=== PATIENT | male | born 1985 | race Caucasian/White ===

== ENCOUNTER 2018-04-12 20:10 | Emergency (ER) | payer OTHER, SELFPAY ==
[2018-04-12 20:29] VITALS: BP 144/82; PULSE 89; RESP 16; TEMP 37.4; O2SAT 98; BMI 34.4
--- NOTE | 2018-04-12 20:48 | DI.RAD.S_ITS ---
PROCEDURE: XR CHEST 2V INDICATIONS: shortness of breath, cough, chest pain TECHNIQUE: 2 views of the chest were acquired. COMPARISON: None. FINDINGS: Surgical changes and devices: None. Lungs and pleura: No pleural effusions or pneumothorax. Lungs are clear. Mediastinum: Mediastinal contours are normal. Heart size is normal. Bones and chest wall: No suspicious bony abnormalities. Soft tissues appear unremarkable. IMPRESSION: No acute cardiopulmonary disease process. Dictated by: Enma Amaya MD, PhD on 04/12/2018 at 21:19 Approved by: Enma Amaya MD, PhD on 04/12/2018 at 21:19
[2018-04-12] MEDS: ASPIRIN 81 MG TAB 324 MG PO (20:52)
[2018-04-12] MEDS: SODIUM CHLORIDE 0.9% 1,000 ML 150 ML IV (20:53)
[2018-04-12 21:04] LABS: Alanine Aminotransferase 40 IU/L (21-72); Albumin 3.9 g/dL (3.5-5.0); Albumin Globulin Ratio 1.3 (1.0-2.8); Alkaline Phosphatase 91 U/L (38-126); Aspartate Aminotransferase 28 IU/L (17-59); Bilirubin Total 0.9 mg/dL (0.2-1.3); Blood Urea Nitrogen 12 mg/dL (9-20); Calcium 8.7 mg/dL (8.4-10.2); Carbon Dioxide 26 mmol/L (22-32); Chloride 102 mmol/L (98-107); Creatine Kinase 76 U/L (55-170); Estimated Glomerular Filt Rate > 60.0 mL/min (>60); Globulin 2.9 g/dL (1.7-4.1); Glucose 101 mg/dL (70-100); HEMOLYSIS 37 (0-50); Lipase 42 U/L (23-300); Potassium 3.8 mmol/L (3.4-5.1); Sodium 138 mmol/L (137-145); Total Protein 6.8 g/dL (6.3-8.2)
[2018-04-12 21:17] LABS: Troponin I < 0.012 ng/mL (0.01-0.034)
[2018-04-12 21:23] LABS: Add Manual Diff / Slide Review NO; Basophils Percent Auto 1.5 % (0-2); Eosinophils Percent Auto 1.4 % (2-4); Hematocrit 38.3 % (41-53); Hemoglobin 14.1 g/dL (13.5-17.5); Mean Corpuscular Volume 80.3 fL (80-100); Monocytes Percent Auto 11.8 % (3-14); Neutrophils Absolute Auto 4200 /uL (3000-5900); Neutrophils Percent Auto 71.3 % (50-75); Platelet Count 206 X10^3/uL (150-400); Red Blood Cell Count 4.78 X10^6/uL (4.5-5.9); Red Cell Distribution Width 13.8 % (11.6-14.8); White Blood Cell Count 5.9 X10^3/uL (4.5-11.0)
[2018-04-12 21:25] VITALS: BP 139/82; PULSE 91; RESP 22; TEMP 37.7; O2SAT 98
[2018-04-12 21:58] VITALS: BP 133/83; PULSE 91; RESP 16; O2SAT 98
[2018-04-12 23:01] VITALS: BP 129/71; PULSE 76; RESP 17; O2SAT 97
[2018-04-13 00:04] LABS: Troponin I < 0.012 ng/mL (0.01-0.034)
[2018-04-13 00:25] VITALS: BP 137/84; PULSE 81; RESP 16; TEMP 36.6; O2SAT 99
--- NOTE | 2018-04-13 04:51 | ED_ITS ---
HPI - URI/Sore Throat General Chief Complaint: Upper Respiratory Symptoms Stated Complaint: CHEST PAIN COUGH COLD Time Seen by Provider: 04/12/18 20:20 Source: patient and family Mode of arrival: ambulatory Limitations: no limitations History of Present Illness HPI Narrative: Patient presents to the emergency department today with a chief complaint of recent upper respiratory infection including nasal congestion the and some cough with shortness of breath. He denies much in the way of sputum production nor fever or chills. About an hour order prior to his arrival, while at rest the patient had some impressive anterior chest discomfort which was pressure like. He denies provocation, palliation or radiation of this pain. It lasted perhaps 15 min and was long gone prior to his arrival here. He was concerned given is chronically, elevated cholesterol numbers and strong family history of cardiac disease. He denies associated symptoms such as dizziness, weakness or lightheadedness. Has stated he denies radiation of his pain. He denies nausea or vomiting MD Complaint: cough, rhinorrhea and nasal congestion Onset (ago): day(s) Duration: improved Severity: moderate Relieving factors: nothing Exacerbating factors: nothing Description of mucous: clear Able to tolerate fluids by mouth: Yes Related Data Allergies Allergy/AdvReac Type Severity Reaction Status Date / Time No Known Drug Allergies Allergy Verified 04/12/18 20:29 Review of Systems Review of Systems All systems reviewed & are unremarkable except as noted in HPI and below Constitutional Denies chills, Denies fever(s), Denies lethargy and Denies weakness Eyes Denies change in vision, Denies eye discharge, Denies irritation and Denies loss of vision ENT Ears, Nose, Mouth, and Throat: Denies change in voice, Reports nasal congestion , Reports nasal discharge, Denies neck pain and Denies sore throat Cardiovascular Reports chest pain, Denies irregular heart rhythm, Denies lightheadedness, Denies palpitations, Denies dyspnea, Denies dyspnea on exertion and Denies orthopnea Respiratory Reports cough, Denies dyspnea, Denies dyspnea on exertion and Denies wheezing Gastrointestinal Gastrointestinal: Denies abdominal pain, Denies change in bowel habits, Denies diarrhea, Denies nausea and Denies vomiting Genitourinary Denies hematuria, Denies flank pain, Denies urinary incontinence and Denies urinary urgency Musculoskeletal Denies neck pain Integumentary/Breasts Denies pruritus, Denies erythema, Denies rash and Denies wounds Neurologic Denies confusion, Denies loss of vision and Denies weakness Psychiatric Denies anxiety, Denies confusion, Denies depression, Denies homicidal ideation and Denies suicidal ideation Endocrine Denies palpitations Hematologic/Lymphatic Denies easy bruising Allergic/Immunologic Denies wheezing PFSH Family History Brother Age: 34 Family history of alcoholism Father Age: 60 Family history of alcoholism Grandfather [facility] hx-ischem heart disease Grandmother Family history of diabetes mellitus (DM) Mother Age: 58 Family history of alcoholism Grandfather [facility] hx-ischem heart disease Social History Smoking Status: Never smoker Exam Narrative Exam Narrative: Pleasant 32-year-old male with minimal distress while at rest, wearing a mask Initial Vital Signs Initial Vital Signs: Vital Signs Temperature 99.4 F 04/12/18 20:29 Pulse Rate 89 04/12/18 20:29 Respiratory Rate 16 04/12/18 20:29 Blood Pressure 144/82 H 04/12/18 20:29 Pulse Oximetry 98 04/12/18 20:29 Const General: cooperative, healthy appearing, comfortable and anxious Nutritional Appearance: well nourished Orientation: alert, awake, oriented x3 and not confused [facility] Head: normocephalic and atraumatic Nose: external nose normal and nasal discharge Face and sinus: sinuses nontender, face symmetric, no sinus tenderness and No dry mucous membranes Mouth: oral mucosae normal and moist mucous membranes Teeth and gingiva: dentition normal Throat: tonsils normal and uvula midline Eyes General: appearance normal, both eyes and all related structures Eyelids: eyelids normal Conjunctivae: conjunctivae normal Sclera: sclerae normal Pupils: PERRL EOM: EOM intact bilaterally Neck Neck: normal visual inspection, trachea midline, No lymphadenopathy, No midline deformity and No JVD Lymphatic: No lymphedema Chest Chest: normal inspection of the chest Resp Effort & Inspection: normal respiratory effort, able to speak in complete sentences, no respiratory distress and no use of accessory muscles Auscultation: clear to auscultation bilaterally, no rales, no rhonchi and no wheezes Cardio Rate: regular rate Rhythm: regular rhythm Heart Sounds: no click, no gallops, no murmurs and no rubs Pulses: normal peripheral pulses GI Inspection: non-distended Palpation: soft, no hepatosplenomegaly, No guarding, No pulsatile mass and No tender Auscultation: normal bowel sounds Back/Spine/Pelvis Back: No CVA tenderness Cervical Spine: cervical ROM normal and No pain with cervical ROM Thoracic/Lumbar Spine: thoracic and lumbar spine normal to inspection Skin General: no rashes or lesions noted, No jaundice and No petechiae Neuro General: alert, oriented x3, gait normal and no focal motor deficits Speech: speech normal Extrem General: full ROM, no clubbing, cyanosis or edema, no pedal edema and no calf tenderness Psych Appearance: well kempt Mental Status: mental status grossly normal Attitude: cooperative Thought Content: normal and suicidality Judgment: judgment good Scores HEART Score Heart Score history: Slightly Suspicious Heart Score EKG: Normal Heart Score Age: < 45 years old Heart Score risk factors: 1-2 risk factors Heart Score troponin: < or = to normal limit Heart Score Total: 1 Course Orders Ordered: ED Orders 04/12/18 20:45 Complete Blood Count AUTO DIFF Stat Comprehensive Metabolic Panel Stat Lipase Stat Troponin with CK Cardiac Panel Stat 04/12/18 20:48 XR chest 2V Stat 04/12/18 23:32 Troponin I Stat Discontinued Medications Aspirin (Aspirin Chew) 324 mg PO NOW ONE Stop: 04/12/18 20:48 Last Admin: 04/12/18 20:52 Dose: 324 mg Sodium Chloride (Normal Saline 0.9%) 1,000 mls @ 150 mls/hr IV CONT KELVIN Last Infusion: 04/13/18 00:41 Dose: 0 mls/hr Admin: 04/12/18 20:53 Dose: 150 mls/hr Vital Signs - 8 hr 04/12/18 21:25 04/12/18 21:58 04/12/18 23:01 Temperature 99.8 F H Pulse Rate 91 H 91 H 76 Respiratory Rate 22 16 17 Blood Pressure [Right Arm] 139/82 H 133/83 H 129/71 H Pulse Oximetry 98 98 97 04/13/18 00:25 Temperature 97.8 F Pulse Rate 81 Respiratory Rate 16 Blood Pressure [Right Arm] 137/84 H Pulse Oximetry 99 MDM - URI/Sore Throat Differential Diagnosis Differential diagnosis: Likely upper respiratory infection, viral infection, bronchitis and other (Pericarditis, esophageal spasm, coronary artery vasospasm) Medical Records Attestation: I reviewed the patient's medical records. Lab Data Attestation: I reviewed the patient's lab results. Result diagrams: 04/12/18 20:45 04/12/18 20:45 Lab Results 04/12/18 04/12/18 04/12/18 Range/Units 20:45 20:45 23:32 WBC 5.9 (4.5-11.0) X10^3/uL RBC 4.78 (4.5-5.9) X10^6/uL Hgb 14.1 (13.5-17.5) g/dL Hct 38.3 L (41-53) % MCV 80.3 (80-100) fL MCH Not Reportable MCHC (30-36) % RDW 13.8 (11.6-14.8) % Plt Count 206 (150-400) X10^3/uL Neut % (Auto) 71.3 (50-75) % Lymph % (Auto) 14.0 L (25-40) % [place] % (Auto) 11.8 (3-14) % Eos % (Auto) 1.4 L (2-4) % Baso % (Auto) 1.5 (0-2) % Neut # (Auto) 4200 (8629-0193) /uL Sodium 138 (137-145) mmol/L Potassium 3.8 (3.4-5.1) mmol/L Chloride 102 (98-107) mmol/L Carbon Dioxide 26 (22-32) mmol/L BUN 12 (9-20) mg/dL Creatinine 0.80 (0.66-1.25) mg/dL Estimated GFR > 60.0 (>60) mL/min BUN/Creatinine Ratio 15.0 (6-22) Glucose 101 H (70-100) mg/dL Calcium 8.7 (8.4-10.2) mg/dL Total Bilirubin 0.9 (0.2-1.3) mg/dL AST 28 (17-59) IU/L ALT 40 (21-72) IU/L Alkaline Phosphatase 91 (38-126) U/L Total Creatine Kinase 76 (55-170) U/L Troponin I < 0.012 < 0.012 (0.01-0.034) ng/mL Total Protein 6.8 (6.3-8.2) g/dL Albumin 3.9 (3.5-5.0) g/dL Globulin 2.9 (1.7-4.1) g/dL Albumin/Globulin Ratio 1.3 (1.0-2.8) Lipase 42 (23-300) U/L Imaging Data Chest x-ray: Attestation: I personally reviewed and interpreted this imaging study as follows: Radiologist's impression: PROCEDURE: XR CHEST 2V INDICATIONS: shortness of breath, cough, chest pain TECHNIQUE: 2 views of the chest were acquired. COMPARISON: None. FINDINGS: Surgical changes and devices: None. Lungs and pleura: No pleural effusions or pneumothorax. Lungs are clear. Mediastinum: Mediastinal contours are normal. Heart size is normal. Bones and chest wall: No suspicious bony abnormalities. Soft tissues appear unremarkable. IMPRESSION: No acute cardiopulmonary disease process. Dictated by: Enma Amaya MD, PhD on 04/12/2018 at 21:19 ECG Data Attestation: I personally reviewed and interpreted this ECG as follows: Prior ECG tracings: not available for review Interpretation: Normal sinus rhythm, no tachycardia. No signs of ischemia or ectopy. No ST segmental elevation, depression or T-wave abnormalities MDM Narrative Medical decision making narrative: The largely healthy 32-year-old male with low pretest probability and minimal risk factors. Patient clearly has signs of upper respiratory infection which likely contribute to his chest discomfort. Normal EKG, low heart score, troponin times to unremarkable. No pneumonia on x- ray or exam, no antibiotic indicated. Discharge Plan Departure Patient Disposition: Home, Self-Care Clinical Impression: Atypical chest pain, Upper respiratory infection Discharge Date/Time: 04/13/18 00:41 Interventions: ED Discharge Assessment Last Done: 04/13/18 00:40 Instructions: DI for Atypical Chest Pain Activity Restrictions/Additional Instructions: *You have been diagnosed with [ atypical chest pain and viral upper respiratory infection ] *What to do: *Take medications as directed (over the counter cough and cold) *Follow up with your primary care provider in 2-3 days *Return to ER if you should have any new, worsening or concerning symptoms Referrals: Bernardo Winkler MD [Primary Care Provider] -
== END 2018-04-13 00:41 | disposition home or self-care (01) ==
PROVIDERS: Emergency Provider Emergency Medicine; PCP Internal Medicine
DX: J06.9 Acute upper respiratory infection, unspecified (principal); R07.9 Chest pain, unspecified
CPT/HCPCS: 36415; 36591; 71046; 80053; 82550; 82553; 83690; 84484; 85025; 93005; 96360; 96361; 99283; 99285

== ENCOUNTER → 2018-10-25 07:17 | Outpatient (CLI) | payer OTHER, SELFPAY ==
[2018-10-25 08:22] LABS: HDL Cholesterol 37 mg/dL (40-60)
[2018-10-25 08:48] LABS: Cholesterol 464 mg/dL (140-199); Triglycerides 1305 mg/dL (35-150)
== END ==
PROVIDERS: PCP Internal Medicine; Visit Provider Internal Medicine
DX: Z13.6 Encounter for screening for cardiovascular disorders (principal)
CPT/HCPCS: 36415; 80061

== ENCOUNTER → 2019-08-15 08:03 | Outpatient (CLI) | payer OTHER, SELFPAY ==
[2019-08-15 09:30] LABS: Alanine Aminotransferase 103 IU/L (<50); Albumin 4.3 g/dL (3.5-5.0); Alkaline Phosphatase 98 U/L (38-126); Aspartate Aminotransferase 48 IU/L (17-59); Bilirubin Unconjugated 0.8 mg/dL (0.0-1.1); Cholesterol 189 mg/dL (140-199); Globulin 2.2 g/dL (1.7-4.1); HDL Cholesterol 34 mg/dL (40-60); HEMOLYSIS < 15 (0-50); Lipase 52 U/L (23-300); Total Protein 6.5 g/dL (6.3-8.2); Triglycerides 432 mg/dL (35-150)
== END ==
PROVIDERS: PCP Student in an Organized Health Care Education/Training Program; Visit Provider Student in an Organized Health Care Education/Training Program
DX: E78.00 Pure hypercholesterolemia, unspecified (principal); E78.1 Pure hyperglyceridemia; Z79.899 Other long term (current) drug therapy; E55.9 Vitamin D deficiency, unspecified
CPT/HCPCS: 36415; 80061; 80076; 82306; 83690

== ENCOUNTER → 2020-12-10 07:01 | Outpatient (CLI) | payer OTHER, SELFPAY ==
[2020-12-10 07:43] LABS: Alanine Aminotransferase 76 IU/L (<50); Albumin 4.1 g/dL (3.5-5.0); Albumin Globulin Ratio 1.6 (1.0-2.8); Alkaline Phosphatase 103 U/L (38-126); Aspartate Aminotransferase 49 IU/L (17-59); Bilirubin Total 0.8 mg/dL (0.2-1.3); Bilirubin Unconjugated 0.8 mg/dL (0.0-1.1); Cholesterol 270 mg/dL (140-199); Globulin 2.6 g/dL (1.7-4.1); HDL Cholesterol 43 mg/dL (40-60); Total Protein 6.7 g/dL (6.3-8.2)
[2020-12-10 07:49] LABS: HEMOLYSIS 31 (0-50)
[2020-12-10 07:53] LABS: Triglycerides 692 mg/dL (35-150)
== END ==
PROVIDERS: PCP Student in an Organized Health Care Education/Training Program; Referring Provider Student in an Organized Health Care Education/Training Program; Visit Provider Student in an Organized Health Care Education/Training Program
DX: E66.9 Obesity, unspecified (principal); E78.49 Other hyperlipidemia; Z79.899 Other long term (current) drug therapy
CPT/HCPCS: 36415; 80061; 80076

== ENCOUNTER → 2021-04-01 06:58 | Outpatient (CLI) | payer OTHER, SELFPAY ==
[2021-04-01 09:11] LABS: BUN Creatinine Ratio 20.8 (6-22); Blood Urea Nitrogen 15 mg/dL (9-20); Calcium 9.1 mg/dL (8.4-10.2); Carbon Dioxide 27 mmol/L (22-32); Chloride 104 mmol/L (98-107); Cholesterol 171 mg/dL (140-199); Estimated Glomerular Filt Rate > 60.0 mL/min (>60); Glucose 95 mg/dL (70-100); HDL Cholesterol 34 mg/dL (40-60); HEMOLYSIS 48 (0-50); Sodium 138 mmol/L (137-145); Triglycerides 420 mg/dL (35-150)
== END ==
PROVIDERS: PCP Student in an Organized Health Care Education/Training Program; Referring Provider Student in an Organized Health Care Education/Training Program; Visit Provider Student in an Organized Health Care Education/Training Program
DX: E78.49 Other hyperlipidemia (principal); I10 Essential (primary) hypertension
CPT/HCPCS: 36415; 80048; 80061

== ENCOUNTER → 2022-05-18 16:46 | Outpatient (CLI) | payer OTHER, SELFPAY ==
[2022-05-18 17:59] LABS: BUN Creatinine Ratio 18.1 (6-22); Blood Urea Nitrogen 15 mg/dL (9-20); Calcium 9.6 mg/dL (8.4-10.2); Carbon Dioxide 30 mmol/L (22-32); Chloride 101 mmol/L (98-107); Cholesterol 150 mg/dL (140-199); Estimated Glomerular Filt Rate > 60 mL/min (>60); Glucose 86 mg/dL (70-100); HDL Cholesterol 38 mg/dL (40-60); HEMOLYSIS 21 (0-50); Potassium 4.4 mmol/L (3.4-5.1); Sodium 136 mmol/L (137-145)
[2022-05-18 18:01] LABS: LDL Cholesterol Calculated 50 mg/dL (<100); Triglycerides 308 mg/dL (35-150)
[2022-05-18 18:09] LABS: LDL Cholesterol Direct 48 mg/dL (<100)
== END ==
PROVIDERS: PCP Student in an Organized Health Care Education/Training Program; Referring Provider Student in an Organized Health Care Education/Training Program; Visit Provider Student in an Organized Health Care Education/Training Program
DX: E78.49 Other hyperlipidemia (principal); I10 Essential (primary) hypertension
CPT/HCPCS: 36415; 80048; 80061; 83721

== ENCOUNTER 2022-06-06 12:42 | Emergency (ER) | payer OTHER, SELFPAY ==
[2022-06-06] VITALS (19 sets, daily range): BP systolic 130–146; BP diastolic 86–106; PULSE 73–85; RESP 15–40; TEMP 36.9; O2SAT 97–100; BMI 35.9
--- NOTE | 2022-06-06 13:23 | PC.NURSE ---
pt has blood on face and arms bilaterally. some open bleeding wounds, others hard to detect due to amount of blood. possible lacerations/abrasions to face, unable to tell currently with amount of blood. no active bleeding on head/face. pt does c/o lower flank pain on left side.
--- NOTE | 2022-06-06 13:30 | DI.RAD.S_ITS ---
PROCEDURE: XR HUMERUS LT 2V INDICATIONS: glass shards in wounds TECHNIQUE: AP and lateral views of the humerus were acquired. COMPARISON: None. FINDINGS: Bones: No fractures or dislocations. No suspicious bony lesions. Soft tissues: No suspicious soft tissue calcifications. No radiopaque foreign bodies identified. IMPRESSION: No evidence acute bony abnormality of the left humerus. No radiopaque foreign bodies identified. Dictated by: Mehdi Foote M.D. on 06/06/2022 at 14:54 Approved by: Mehdi Foote M.D. on 06/06/2022 at 14:55
[2022-06-06 14:02] LABS: Add Manual Diff / Slide Review NO; Basophils Absolute Auto 0 /uL (0-100); Basophils Percent Auto 0.3 % (0-2); Eosinophils Absolute Auto 0 /uL (0-450); Eosinophils Percent Auto 0.8 % (2-4); Hematocrit 41.8 % (41-53); Hemoglobin 15.1 g/dL (13.5-17.5); Lymphocytes Absolute Auto 1400 /uL (1100-4500); Lymphocytes Percent Auto 21.4 % (25-40); Mean Corpuscular HGB Conc 36.1 % (30-36); Mean Corpuscular Hemoglobin 29.6 PG (26-34); Monocytes Absolute Auto 600 /uL (0-900); Monocytes Percent Auto 8.8 % (3-14); Neutrophils Absolute Auto 4500 /uL (1500-7000); Neutrophils Percent Auto 68.7 % (50-75); Platelet Count 235 X10^3/uL (150-400); White Blood Cell Count 6.6 X10^3/uL (4.5-11.0)
[2022-06-06 14:24] LABS: Alanine Aminotransferase 60 IU/L (<50); Albumin 4.5 g/dL (3.5-5.0); Albumin Globulin Ratio 1.7 (1.0-2.8); Alkaline Phosphatase 111 U/L (38-126); Aspartate Aminotransferase 36 IU/L (17-59); BUN Creatinine Ratio 15.1 (6-22); Bilirubin Total 0.9 mg/dL (0.2-1.3); Blood Urea Nitrogen 11 mg/dL (9-20); Calcium 9.4 mg/dL (8.4-10.2); Carbon Dioxide 31 mmol/L (22-32); Chloride 101 mmol/L (98-107); Estimated Glomerular Filt Rate > 60 mL/min (>60); Globulin 2.6 g/dL (1.7-4.1); Glucose 96 mg/dL (70-100); HEMOLYSIS 24 (0-50); Potassium 4.1 mmol/L (3.4-5.1); Sodium 139 mmol/L (137-145); Total Protein 7.1 g/dL (6.3-8.2)
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
== END 2022-06-06 18:12 | disposition home or self-care (01) ==
PROVIDERS: Emergency Medicine; Emergency Provider Registered Nurse; PCP Student in an Organized Health Care Education/Training Program
DX: M25.512 Pain in left shoulder (principal); S00.81XA Abrasion of other part of head, initial encounter; S40.212A Abrasion of left shoulder, initial encounter; V89.2XXA Person injured in unspecified motor-vehicle accident, traffic, initial encounter
CPT/HCPCS: 36415; 73060; 74177; 80053; 81003; 85025; 86850; 86900; 86901; 99284; 99285; Q9967

== ENCOUNTER → 2023-04-13 08:19 | Outpatient (CLI) | payer OTHER, SELFPAY ==
[2023-04-13 09:34] LABS: Alanine Aminotransferase 109 IU/L (<50); Albumin 4.3 g/dL (3.5-5.0); Albumin Globulin Ratio 1.8 (1.0-2.8); Alkaline Phosphatase 119 U/L (38-126); Aspartate Aminotransferase 47 IU/L (17-59); BUN Creatinine Ratio 18.9 (6-22); Bilirubin Total 0.8 mg/dL (0.2-1.3); Blood Urea Nitrogen 14 mg/dL (9-20); Carbon Dioxide 26 mmol/L (22-32); Chloride 105 mmol/L (98-107); Cholesterol 281 mg/dL (140-199); Estimated Glomerular Filt Rate > 60 mL/min (>60); Globulin 2.4 g/dL (1.7-4.1); Glucose 90 mg/dL (70-100); HDL Cholesterol 37 mg/dL (40-60); HEMOLYSIS < 15 (0-50); Potassium 4.2 mmol/L (3.4-5.1); Sodium 139 mmol/L (137-145); Total Protein 6.7 g/dL (6.3-8.2)
[2023-04-13 09:41] LABS: Triglycerides 820 mg/dL (35-150)
== END ==
PROVIDERS: PCP Pediatrics; Referring Provider Pediatrics; Visit Provider Pediatrics
DX: E78.49 Other hyperlipidemia (principal); I10 Essential (primary) hypertension
CPT/HCPCS: 36415; 80053; 80061

== ENCOUNTER → 2023-09-28 06:55 | Outpatient (CLI) | payer OTHER, SELFPAY ==
[2023-09-28 09:23] LABS: Alanine Aminotransferase 160 IU/L (<50); Albumin 4.2 g/dL (3.5-5.0); Albumin Globulin Ratio 1.9 (1.0-2.8); Alkaline Phosphatase 91 U/L (38-126); Aspartate Aminotransferase 79 IU/L (17-59); BUN Creatinine Ratio 18.5 (6-22); Bilirubin Total 0.9 mg/dL (0.2-1.3); Blood Urea Nitrogen 15 mg/dL (9-20); Calcium 9.5 mg/dL (8.4-10.2); Carbon Dioxide 28 mmol/L (22-32); Chloride 101 mmol/L (98-107); Cholesterol 100 mg/dL (140-199); Estimated Glomerular Filt Rate > 60 mL/min (>60); Globulin 2.2 g/dL (1.7-4.1); Glucose 90 mg/dL (70-100); HDL Cholesterol 30 mg/dL (40-60); HEMOLYSIS < 15 (0-50); LDL Cholesterol Calculated 39 mg/dL (<100); Potassium 4.5 mmol/L (3.4-5.1); Sodium 138 mmol/L (137-145); Total Protein 6.4 g/dL (6.3-8.2); Triglycerides 157 mg/dL (35-150)
[2023-09-28 10:20] LABS: HIV 1 & 2 Ab/Ag 4th Gen Combo NEGATIVE (NEGATIVE); Hep C Virus Ab w/Reflex Quant NEGATIVE s/c (NEGATIVE)
[2023-09-28 17:48] LABS: Hemoglobin A1C% w Est Avg Glu 4.5 % (4.0-6.0)
== END ==
PROVIDERS: PCP Family Medicine; Referring Provider Family Medicine; Visit Provider Family Medicine
DX: E78.49 Other hyperlipidemia (principal); E66.9 Obesity, unspecified; I10 Essential (primary) hypertension; R79.89 Other specified abnormal findings of blood chemistry
CPT/HCPCS: 36415; 80053; 80061; 83036; 86803; 87389

== ENCOUNTER → 2024-04-02 08:47 | Outpatient (CLI) | payer OTHER, SELFPAY ==
[2024-04-02 10:31] LABS: Alanine Aminotransferase 84 IU/L (<50); Albumin 4.6 g/dL (3.5-5.0); Alkaline Phosphatase 101 U/L (38-126); Aspartate Aminotransferase 41 IU/L (17-59); BUN Creatinine Ratio 19.1 (6-22); Blood Urea Nitrogen 18 mg/dL (9-20); Calcium 9.8 mg/dL (8.4-10.2); Carbon Dioxide 26 mmol/L (22-32); Chloride 108 mmol/L (98-107); Cholesterol 156 mg/dL (140-199); Estimated Glomerular Filt Rate > 60 mL/min (>60); Globulin 2.3 g/dL (1.7-4.1); Glucose 98 mg/dL (70-100); HDL Cholesterol 44 mg/dL (40-60); HEMOLYSIS < 15 (0-50); LDL Cholesterol Calculated 61 mg/dL (<100); Potassium 4.3 mmol/L (3.4-5.1); Sodium 140 mmol/L (137-145); Total Protein 6.9 g/dL (6.3-8.2); Triglycerides 253 mg/dL (35-150)
== END ==
PROVIDERS: PCP Family Medicine; Referring Provider Family Medicine; Visit Provider Family Medicine
DX: R79.89 Other specified abnormal findings of blood chemistry (principal); E78.49 Other hyperlipidemia; I10 Essential (primary) hypertension
CPT/HCPCS: 36415; 80053; 80061

== ENCOUNTER → 2024-08-29 09:27 | Outpatient (CLI) | payer OTHER, SELFPAY ==
[2024-08-29 11:10] LABS: Hemoglobin A1C% w Est Avg Glu 4.6 % (4.0-6.0)
[2024-08-29 11:30] LABS: BUN Creatinine Ratio 15.6 (6-22); Blood Urea Nitrogen 12 mg/dL (9-20); Calcium 9.7 mg/dL (8.4-10.2); Carbon Dioxide 24 mmol/L (22-32); Chloride 106 mmol/L (98-107); Estimated Glomerular Filt Rate > 60 mL/min (>60); Glucose 87 mg/dL (70-100); HEMOLYSIS < 15 (0-50); Potassium 4.3 mmol/L (3.4-5.1); Sodium 139 mmol/L (137-145)
== END ==
PROVIDERS: PCP Family Medicine; Referring Provider Family Medicine; Visit Provider Family Medicine
DX: I10 Essential (primary) hypertension (principal); E66.9 Obesity, unspecified; E78.49 Other hyperlipidemia
CPT/HCPCS: 36415; 80048; 83036

== ENCOUNTER → 2025-04-10 07:44 | Outpatient (CLI) | payer OTHER, SELFPAY ==
[2025-04-10 09:27] LABS: Alanine Aminotransferase 83 IU/L (<50); Albumin 4.3 g/dL (3.5-5.0); Albumin Globulin Ratio 2.3 (1.0-2.8); Alkaline Phosphatase 93 U/L (38-126); Aspartate Aminotransferase 41 IU/L (17-59); BUN Creatinine Ratio 18.5 (6-22); Bilirubin Total 1.2 mg/dL (0.2-1.3); Blood Urea Nitrogen 15 mg/dL (9-20); Calcium 9.1 mg/dL (8.4-10.2); Carbon Dioxide 26 mmol/L (22-32); Chloride 103 mmol/L (98-107); Cholesterol 153 mg/dL (140-199); Estimated Glomerular Filt Rate > 60 mL/min (>60); Globulin 1.9 g/dL (1.7-4.1); Glucose 98 mg/dL (70-99); HDL Cholesterol 33 mg/dL (40-60); HEMOLYSIS < 15 (0-50); LDL Cholesterol Calculated 51 mg/dL (<100); Potassium 4.6 mmol/L (3.4-5.1); Sodium 136 mmol/L (137-145); Total Protein 6.2 g/dL (6.3-8.2); Triglycerides 343 mg/dL (35-150)
== END ==
PROVIDERS: PCP Family Medicine; Referring Provider Family Medicine; Visit Provider Family Medicine
DX: E78.49 Other hyperlipidemia (principal); E66.9 Obesity, unspecified; I10 Essential (primary) hypertension
CPT/HCPCS: 36415; 80053; 80061

== ENCOUNTER → 2025-09-28 08:25 | Outpatient (CLI) | payer OTHER, SELFPAY ==
[2025-09-28 10:33] LABS: Alanine Aminotransferase 93 IU/L (<50); Albumin 4.5 g/dL (3.5-5.0); Albumin Globulin Ratio 2.1 (1.0-2.8); Alkaline Phosphatase 95 U/L (38-126); Blood Urea Nitrogen 11 mg/dL (9-20); Calcium 9.3 mg/dL (8.4-10.2); Carbon Dioxide 27 mmol/L (22-32); Chloride 104 mmol/L (98-107); Cholesterol 166 mg/dL (140-199); Estimated Glomerular Filt Rate > 60 mL/min (>60); Globulin 2.1 g/dL (1.7-4.1); Glucose 93 mg/dL (70-99); HDL Cholesterol 36 mg/dL (40-60); HEMOLYSIS < 15 (0-50); Potassium 4.3 mmol/L (3.4-5.1); Sodium 140 mmol/L (137-145); Total Protein 6.6 g/dL (6.3-8.2); Triglycerides 484 mg/dL (35-150)
== END ==
PROVIDERS: PCP Family Medicine; Referring Provider Family Medicine; Visit Provider Family Medicine
DX: E78.49 Other hyperlipidemia (principal); I10 Essential (primary) hypertension; E66.9 Obesity, unspecified; R79.89 Other specified abnormal findings of blood chemistry
CPT/HCPCS: 36415; 80053; 80061